=== PATIENT | female | born 1960 | race Caucasian/White ===

== ENCOUNTER → 2025-01-30 | Outpatient (CLI) | payer BC, SELFPAY ==
--- NOTE | 2025-01-30 13:30 | XR_ITS ---
Examination: Ultrasound soft tissue neck TECHNIQUE: Grayscale sonographic images soft tissue neck Exam date and time: January 30, 2025 at 1352 hours INDICATIONS: Abnormal salivary gland secretions left neck pain 3 months FINDINGS: No cystic or solid soft tissue neck mass IMPRESSION: No cystic or solid soft tissue neck mass
== END | disposition home or self-care (01) ==
PROVIDERS: PCP Nurse Practitioner Family; Referring Provider Nurse Practitioner Family; Visit Provider Nurse Practitioner Family
DX: K11.7 Disturbances of salivary secretion (principal)
CPT/HCPCS: 76536

== ENCOUNTER → 2025-03-12 | Outpatient (CLI) | payer BC, SELFPAY ==
--- NOTE | 2025-03-12 09:36 | XR_ITS ---
Examination: Esophagram standard Fluoroscopy Upright PA chest single view Upright soft tissue lateral neck single view 25 fluoroscopic films of the esophagus Date and time: March 12, 2025 0901 hours INDICATIONS: Difficulty swallowing 10 years, history thyroid surgery for thyroid tumor TECHNIQUE AND FINDINGS: Upright PA chest single view demonstrates mild prominence left ventricle Minor subsegmental atelectasis left base Soft tissue lateral neck single view demonstrates normal epiglottis Numerous surgical clips in the thyroid bed Moderate degenerative disc disease C5-C6 mild cervical spondylosis Patient swallowed thin barium with primary peristaltic esophageal waves noted Moderate intermittent gastroesophageal reflux Moderate sliding esophageal hernia No stricture the gastroesophageal junction Fluoroscopy 11 seconds 22 spot fluoroscopic films of the esophagus IMPRESSION: Moderate intermittent gastroesophageal reflux Moderate sliding esophageal hernia No stricture at the gastroesophageal junction
== END | disposition home or self-care (01) ==
PROVIDERS: PCP Nurse Practitioner Family; Referring Provider Nurse Practitioner Family; Visit Provider Nurse Practitioner Family
DX: K21.9 Gastro-esophageal reflux disease without esophagitis (principal); K44.9 Diaphragmatic hernia without obstruction or gangrene
CPT/HCPCS: 74220; A4699